=== PATIENT | female | born 2000 | race Two or more races ===

== ENCOUNTER 2018-01-11 11:31 | Emergency (ER) | payer MEDICAID, OTHER ==
[~2018-01-11] VITALS: Ht 167.6 cm; Wt 77.2 kg
[2018-01-11 11:40] VITALS: BP 116/60; PULSE 80; RESP 16; TEMP 98.3; O2SAT 98
--- NOTE | 2018-01-11 12:40 | PD ---
HPI Chief Complaint: Fall Time Seen by Provider: 11:54 Travel History International Travel<30 days: No Contact w/Intl Traveler<30days: No Traveled to known affect area: No History of Present Illness HPI 17-year-old female presents to the emergency room for evaluation of left ankle pain after inversion injury just prior to arrival. Patient states she was walking through the grass when she twisted her ankle in a ditch. She heard a pop and fell forward but denies any other injuries. States she has not been able to walk long distances on it since then because of the pain. Pain is localized to the left lateral malleolus. Worse with range of motion and ambulation. No paresthesias. She came straight from the accident and has not taken anything for symptoms. No chronic medical conditions or daily medications. Her menstrual cycle is late. [facility] Past Medical History ?: Not LMP: 12/11/17 Social History Tobacco Use: No Review of Systems Except as stated in HPI: all other systems reviewed are Neg Physical Exam Narrative GENERAL: Well-nourished, well-developed female no acute distress. Afebrile. Ambulatory. SKIN: Focused skin assessment warm/dry. No erythema or ecchymosis. HEAD: Normocephalic. EYES: No scleral icterus. No injection or drainage. NECK: Supple, trachea midline. No JVD or lymphadenopathy. CARDIOVASCULAR: Regular rate and rhythm without murmurs, gallops, or rubs. RESPIRATORY: Breath sounds equal bilaterally. No accessory muscle use. MUSCULOSKELETAL: No cyanosis. No obvious edema. Limited range of motion secondary to pain. Mild tenderness to palpation over the left lateral malleolus. 2+ dorsalis pedis pulse. Negative squeeze test. Data Data Last Documented VS Vital Signs Date Time Temp Pulse Resp B/P (MAP) Pulse Ox O2 Delivery O2 Flow Rate FiO2 01/11/18 11:40 98.3 80 16 116/60 (78) 98 Orders Orders Ed Urine Pregnancytest Poc (01/11/18 11:59) Ankle, Complete ([id number]) (01/11/18 ) [facility] Medical Decision Making Medical Screen Exam Complete: Yes Emergency Medical Condition: Yes Medical Record Reviewed: Yes Differential Diagnosis Ankle sprain, fracture, dislocation, contusion Narrative Course 17-year-old female presents to the emergency room for evaluation of left ankle pain and swelling after falling in a ditch just prior to arrival. No other injuries. Patient is well-appearing. Physical exam is reassuring. There is no edema, erythema, or ecchymosis. Negative squeeze test. Left lower extremity is neurovascularly intact. X-ray is negative. Likely sprain. Patient placed in Tani wrap and told to follow-up with a primary care physician or return for worsening symptoms. She understands and agrees to plan. Diagnosis Primary Impression: Left ankle sprain Qualified Codes: S93.402A - Sprain of unspecified ligament of left ankle, initial encounter Referrals: Primary Care Physician Additional Instructions: Rest and drink plenty of fluids. Take ibuprofen with food as directed, as needed for pain. Apply ice to the affected area for 20 minutes at a time, as needed for pain and swelling. Follow-up with a primary care physician. Return to the emergency room for worsening symptoms. Disposition: 01 DISCHARGE HOME Condition: Stable Arielle Norwood January 11, 2018 12:40
--- NOTE | 2018-01-11 12:46 | RADRPT ---
EXAM DATE/TIME: 01/11/2018 12:31 [place] COMPARISON: No previous studies available for comparison. INDICATIONS : Left ankle pain on lateral side after rolling it. MEDICAL HISTORY : None. SURGICAL HISTORY : None. ENCOUNTER: Initial ACUITY: 1 day PAIN SCORE: 7/10 LOCATION: Left ankle FINDINGS: Three view exam was performed of the left ankle. The bony structures are in normal alignment. No ev idence of fracture or dislocation. Mild, diffuse soft tissue swelling. The ankle mortise is intact. No radiopaque foreign bodies are seen. Bony mineralization is normal. CONCLUSION: Mild soft tissue swelling. No fracture. Darien Gould MD on January 11, 2018 at 12:43 Board Certified Radiologist. This report was verified electronically.
== END 2018-01-11 13:10 | disposition home or self-care (01) ==
LOC: NEPK 11:31
DX: S93.402A Sprain of unspecified ligament of left ankle, initial encounter (principal); W19.XXXA Unspecified fall, initial encounter; X50.1XXA Overexertion from prolonged static or awkward postures, initial encounter; Y93.01 Activity, walking, marching and hiking
CPT/HCPCS: 73610; 84703; 99283